=== PATIENT | male | born 1945 | race Native Hawaiian/Other Pacific Islander ===

== ENCOUNTER 2017-09-02 10:15 | Outpatient (CLI) | payer OTHER ==
[~2017-09-02 10:15] MED LIST: ASPIRIN325 M1 PO; B6 FOLIC ACD PO; FOLI1TAB26 PO; GABA300C2 PO; HYDROCHLOROT12.5 M1 PO; LISI20TA11 PO; METO50TA27 PO; NOVOLIN SC; SIMV40TA57 PO
[2017-09-02 10:36] LABS: PLATELET COUNT 133 K/uL (142-355)
[2017-09-02 10:55] LABS: POTASSIUM 4.7 mmol/L (3.6-5.2)
== END 2017-09-02 19:45 | disposition home or self-care (01) ==
LOC: LABW 10:15
PROVIDERS: Surgery Vascular Surgery
DX: Z01.810 Encounter for preprocedural cardiovascular examination (principal); Z01.811 Encounter for preprocedural respiratory examination; Z01.812 Encounter for preprocedural laboratory examination; Z79.01 Long term (current) use of anticoagulants; Z51.81 Encounter for therapeutic drug level monitoring
CPT/HCPCS: 36415; 80053; 85027; 85610

== ENCOUNTER 2018-07-27 19:34 | Outpatient (CLI) | payer OTHER | END 2018-07-27 19:45 | disposition short-term general hospital (02) | LOC: AMB 19:34 | DX: M25.551 Pain in right hip (principal); T14.8XXA Other injury of unspecified body region, initial encounter; W18.39XA Other fall on same level, initial encounter; Y92.511 Restaurant or cafe as the place of occurrence of the external cause | CPT/HCPCS: A0425; A0429 ==

== ENCOUNTER 2018-07-27 19:53 | Emergency (ER) | payer OTHER ==
[~2018-07-27] VITALS: Ht 185.4 cm; Wt 93.4 kg
[2018-07-27 20:01] VITALS: TEMP 97.8
[2018-07-27 23:26] VITALS: BP 170/80
== END 2018-07-27 23:31 | disposition home or self-care (01) ==
LOC: ED 19:53
DX: S72.092A Other fracture of head and neck of left femur, initial encounter for closed fracture (principal); W01.0XXA Fall on same level from slipping, tripping and stumbling without subsequent striking against object, initial encounter; Y93.89 Activity, other specified; Y92.511 Restaurant or cafe as the place of occurrence of the external cause; S02.2XXA Fracture of nasal bones, initial encounter for closed fracture
CPT/HCPCS: 96374; 96375; 96376; 99284; J2270; J2405

== ENCOUNTER 2018-07-27 23:28 | Outpatient (CLI) | payer OTHER | END 2018-07-27 23:53 | disposition short-term general hospital (02) | LOC: AMB 23:28 | DX: S72.091A Other fracture of head and neck of right femur, initial encounter for closed fracture (principal); W18.39XA Other fall on same level, initial encounter; Y92.511 Restaurant or cafe as the place of occurrence of the external cause | CPT/HCPCS: A0425; A0429 ==

== ENCOUNTER → 2019-01-27 17:17 | Outpatient (CLI) | payer OTHER | END | disposition home or self-care (01) | LOC: EDBD 17:17 → AMB 17:17 ==